=== PATIENT | male | born 1985 | race Caucasian/White ===

== ENCOUNTER 2023-08-20 09:34 | Observation (INO) | payer SELFPAY ==
[2023-08-20 10:13] LABS: PT Prothrombin Time 12.3 SECONDS (9.4-12.5); Protime INR 1.12
--- NOTE | 2023-08-20 10:20 | RAD REPORT ---
EXAM DESCRIPTION: RAD - Chest Single View - 08/20/2023 10:10 am CLINICAL HISTORY: l sided numbness Chest pain. COMPARISON: No comparisons FINDINGS: Portable technique limits examination quality. The lungs are grossly clear. The heart is normal in size. No displaced fractures. IMPRESSION: No acute intrathoracic process suspected.
[2023-08-20] MEDS ORDERED: NA CHLORIDE 0.9% 1,000 ML ONE (10:21)
--- NOTE | 2023-08-20 10:22 | RAD REPORT ---
EXAM DESCRIPTION: CT - Ct Stroke Brain Wo Cont - 08/20/2023 10:15 am CLINICAL HISTORY: STROKE ALERT Headache, drowsiness COMPARISON: Head angio dated 08/20/2023 TECHNIQUE: All CT scans are performed using dose optimization technique as appropriate and may inclu de automated exposure control or mA/KV adjustment according to patient size. FINDINGS: No intracranial hemorrhage, hydrocephalus or extra-axial fluid collection.No areas of brai n edema or evidence of midline shift. The paranasal sinuses and mastoids are clear. The calvarium is intact. IMPRESSION: No acute intracranial abnormality.
--- NOTE | 2023-08-20 10:28 | RAD REPORT ---
EXAM DESCRIPTION: CT - Head angio - 08/20/2023 10:15 am CLINICAL HISTORY: LT ARM NUMB Headache, drowsiness COMPARISON: No comparisons TECHNIQUE: CT angiography of the head was performed with MIPs. All CT scans are performed using dose optimization technique as appropriate and may include automated exposure control or mA/KV adjustment according to patient size. FINDINGS: No evidence of large vessel occlusion. No evidence of aneurysm is detected. No flow-limiti ng stenosis or vascular malformation identified. Antegrade flow is seen in the vertebral arteries. The vertebral arteries are codominant. The visualized dural venous sinuses are patent. IMPRESSION: No significant flow abnormality is detected.
--- NOTE | 2023-08-20 10:29 | RAD REPORT ---
EXAM DESCRIPTION: CT - Neck Angio - 08/20/2023 10:15 am CLINICAL HISTORY: l sided numbness Headache, drowsiness COMPARISON: No comparisons TECHNIQUE: CT angiography of the neck vessels was performed with MIPs. All CT scans are performed using dose optimization technique as appropriate and may include automated exposure control or mA/KV adjustment according to patient size. FINDINGS: A left aortic arch is identified with normal three vessel configuration of the great vesse ls. No significant flow abnormality is seen of the common carotid bilaterally. No significant stenosis is identified involving the cervical segments of both internal carotid arteri es. Normal flow is seen within both vertebral arteries. IMPRESSION: No significant flow abnormality of the neck vessels is identified. NASCET criteria used. Mild 0-49% stenosis Moderate 50-69% stenosis Severe 70-99% stenosis
[2023-08-20 10:54] LABS: Absolute Basophils 0.1 K/uL (0-0.5); Absolute Eosinophils 0.1 K/uL (0-0.5); Absolute Lymphocytes (CBC) 1.8 K/uL (0.7-4.9); Absolute Monocytes 0.5 K/uL (0.1-1.3); Absolute Neutrophil 6.9 K/uL (1.8-8.0); Basophils % 0.9 % (0-1.3); Eosinophils % 0.7 % (0-4.4); Hematocrit 42.3 % (39.6-49.0); Hemoglobin 14.2 g/dL (13.6-17.9); Lymphocytes % 19.4 % (15.3-44.8); MCH 31.8 pg (27.0-35.0); MCHC 33.6 g/dL (32.0-36.0); MCV 94.5 fL (80-100); MPV 7.7 fL (7.6-11.3); Platelets 290 thou/uL (152-406); RBC Red Blood Cell Count 4.48 M/uL (4.33-5.43); Red Cell Distribution Width 14.3 % (12.1-15.2)
[2023-08-20 11:01] LABS: PTT, Activated Partial Thromb 36.6 SECONDS (24.3-36.9)
[2023-08-20 13:30] LABS: ALT/SGPT 28 U/L (16-61); AST/SGOT 13 U/L (15-37); Albumin 4.1 g/dL (3.4-5.0); Albumin/Globulin Ratio 1.3 (1.1-1.8); Alkaline Phosphatase 65 U/L (45-117); Anion Gap 6.8 mEq/L (5.0-15.0); BUN Blood Urea Nitrogen 7 mg/dL (7-18); Bicarbonate 29 mEq/L (21-32); Bilirubin Total 0.4 mg/dL (0.2-1.0); Globulin 3.2 g/dL (2.3-3.5); Glomerular Filtration Rate 115 ml/min (=/>90); Glucose Level 88 mg/dL (74-106); Magnesium 2.3 mg/dL (1.6-2.4); Potassium 3.8 mEq/L (3.5-5.1); Protein, Total 7.3 g/dL (6.4-8.2); Sodium Level 141 mEq/L (136-145)
[2023-08-20 13:33] LABS: Bilirubin Direct < 0.2 mg/dL (0-0.2); Bilirubin Indirect, Calculated 0.2 mg/dL (0.2-0.8); Troponin High Sensitivity < 3.0 pg/mL (<58.9)
--- NOTE | 2023-08-20 14:04 | ER ---
Nurse's Notes [facility] Name: Adam Boyer Age: 38 yrs Sex: Male : 1985 Arrival Date: 08/20/2023 Time: 09:34 Bed 14 Private MD: Diagnosis: Left-sided numbness;Double vision Presentation: 08/19 09:40 Chief complaint: Patient states: Left arm numbness and dizziness since last night. Pt aa5 reports feeling shaky and blurry vision today. 09:40 Acuity: RAFFY 2 aa5 09:40 Method Of Arrival: Ambulatory aa5 09:40 Coronavirus screen: At this time, the client does not indicate any symptoms associated aa5 with coronavirus-19. Ebola Screen: Patient denies travel to an Ebola-affected area in the 21 days before illness onset. Initial Sepsis Screen: Does the patient meet any 2 criteria? No. Patient's initial sepsis screen is negative. Does the patient have a suspected source of infection? No. Patient's initial sepsis screen is negative. Risk Assessment: Do you want to hurt yourself or someone else? Patient reports no desire to harm self or others. Onset of symptoms was August 19, 2023. Historical: - Allergies: 10:04 No Known Allergies; mb9 - Home Meds: 09:50 gabapentin [Active]; antidepressant [Active]; aa5 - PMHx: 09:50 Anxiety; Depressive disorder; aa5 - PSHx: 10:04 None; mb9 - Immunization history:: Adult Immunizations unknown. - Infectious Disease History:: Denies. - Social history:: Smoking status: Patient reports the use of cigarette tobacco products, smokes one pack cigarettes per day. - Family history:: not pertinent. Screenin:41 [facility] ED Fall Risk Assessment (Adult) History of falling in the last 3 months, mb9 including since admission No falls in past 3 months (0 pts) Confusion or Disorientation No (0 pts) Intoxicated or Sedated No (0 pts) Impaired Gait No (0 pts) Mobility Assist Device Used No (0 pt) Altered Elimination No (0 pt) Score/Fall Risk Level 0 - 2 = Low Risk Oriented to surroundings, Maintained a safe environment, Educated pt \T\ family on fall prevention, incl call for assistance when getting out of bed. Abuse screen: Denies threats or abuse. Nutritional screening: No deficits noted. Tuberculosis screening: No symptoms or risk factors identified. Assessment: 10:02 General: Appears in no apparent distress. Behavior is anxious. Pain: Denies pain. mb9 Neuro: Vasquez Agitation-Sedation Scale (RASS): 0 - Alert and Calm Level of Consciousness is awake, alert, obeys commands, Oriented to person, place, time, situation, Appropriate for age Manager Mobile are equal bilaterally Moves all extremities. Gait is steady, Speech is normal, Facial symmetry appears normal, Pupils are PERRLA, Numbness in left arm and left leg. Cardiovascular: Heart tones S1 S2 present Patient's skin is warm and dry. Respiratory: Airway is patent Respiratory effort is even, unlabored, Respiratory pattern is regular, symmetrical. GI: Abdomen is round non-distended, Bowel sounds present X 4 quads. Abd is soft and non tender X 4 quads. : No signs and/or symptoms were reported regarding the genitourinary system. EENT: No signs and/or symptoms were reported regarding the EENT system. Derm: Skin is pink, warm \T\ dry. Musculoskeletal: Range of motion: intact in all extremities. 10:25 Reassessment: Lab at bedside drawing blood. mb9 11:53 Reassessment: No changes from previously documented assessment. Patient and/or family mb9 updated on plan of care and expected duration. Pain level reassessed. Patient is alert, oriented x 3, equal unlabored respirations, skin warm/dry/pink. 14:00 Reassessment: No changes from previously documented assessment. Patient and/or family mb9 updated on plan of care and expected duration. Pain level reassessed. Patient is alert, oriented x 3, equal unlabored respirations, skin warm/dry/pink. 16:00 Reassessment: Patient appears in no apparent distress at this time. No changes from mb9 previously documented assessment. Patient and/or family updated on plan of care and expected duration. Pain level reassessed. Patient is alert, oriented x 3, equal unlabored respirations, skin warm/dry/pink. 17:48 Reassessment: No changes from previously documented assessment. Patient and/or family mb9 updated on plan of care and expected duration. Pain level reassessed. Patient is alert, oriented x 3, equal unlabored respirations, skin warm/dry/pink. Vital Signs: 09:40 BP 152 / 96; Pulse 75; Resp 18 S; Temp 99(O); Pulse Ox 96% on R/A; Weight 83.91 kg (R); aa5 Height 5 ft. 8 in. (R); 12:17 BP 123 / 80; Pulse 65; Resp 18; Pulse Ox 99% on R/A; mb9 14:00 BP 119 / 71; Pulse 62; Resp 18; Pulse Ox 100% on R/A; mb9 16:04 BP 112 / 67; Pulse 60; Resp 16; Pulse Ox 100% on R/A; mb9 17:04 Temp 98.5(O); mb9 09:40 Body Mass Index 28.13 (83.91 kg, 172.72 cm) aa5 NIH Stroke Scale Scores: 09:50 NIHSS Score: 2 mb9 ED Course: 09:37 Patient arrived in ED. mg5 09:40 Tanisha Hopkins, RN is Primary Nurse. mb9 09:40 Arm band placed on. mb9 09:40 Placed in gown. Bed in low position. Call light in reach. Side rails up X 1. Provided mb9 Education on: press call light if needing anything. Client placed on continuous cardiac and pulse oximetry monitoring. NIBP monitoring applied. mechanical energy engineer on. Door closed. Noise minimized. Warm blanket given. Pillow given. 09:41 Nomi Mohan MD is Attending Physician. rt 09:49 Triage completed. aa5 09:55 Missed attempt(s): 20 gauge in left antecubital area. Bleeding controlled, band aid mb9 applied, catheter tip intact. 09:55 EKG done, by ED staff, reviewed by Nomi Mhoan MD. mb9 10:02 Initial lab(s) drawn, by nd, sent to lab. Inserted saline lock: 22 gauge in right mb9 forearm, using aseptic technique. Blood collected. 10:12 Stroke CXR 1 View In Process Unspecified. EDMS 10:17 CT Neck Angio In Process Unspecified. EDMS 10:17 CT Stroke Brain w/o Contrast In Process Unspecified. EDMS 10:17 Head angio In Process Unspecified. EDMS 14:01 Jason Lim is Hospitalizing Provider. rt 16:04 No provider procedures requiring assistance completed. Patient admitted, IV remains in mb9 place. 16:18 Brain Wo Cont In Process Unspecified. EDMS Administered Medications: 10:40 Drug: NS 0.9% IV 1000 ml IV at 1000 ml once Route: IV; Rate: 1000 ml; Site: right mb9 forearm; 12:55 Follow up: Response: No adverse reaction; IV Status: Completed infusion [email or web address] 14:13 Drug: Ativan IVP 1 mg IVP once Route: IVP; Site: right forearm; 9 Medication: 09:41 VIS not applicable for this client. stacie Outcome: 14:02 Decision to Hospitalize by Provider. rt 17:48 Admitted to Med/surg accompanied by nurse, stacie 17:48 Condition: stable 17:48 Instructed on the need for admit, 17:49 Patient left the ED. stacie NIH Stroke Scale - NIH Stroke Score Date: 08/20/2023 Time: 09:50 Total Score = 2 10. Dysarthria (speech clarity - read or repeat words) - 0(Normal) 11. Extinction and Inattention (visual/tactile/auditory/spatial/personal) - 0(No abnormality) 1a. Level of Consciousness (LOC) - 0(Alert) 1b. Level of Consciousness (LOC) (Month \T\ Age) - 0(Both) 1c. LOC Commands (Open \T\ Closes Eyes/Tow Boat Captain) - 0(Both) 2. Best Gaze (Lateral Gaze Paresis) - 0(Normal) 3. Visual Field Loss - 0(No visual loss) 4. Facial Palsy - 0(Normal) 5a. Left Arm: Motor (10-second hold) - 0(No drift) 5b. Right Arm: Motor (10-second hold) - 0(No drift) 6a. Left Leg: Motor (5-second hold - always test supine) - 0(No drift) 6b. Right Leg: Motor (5-second hold - always test supine) - 0(No drift) 7. Limb Ataxia (finger/nose \T\ heel/wallace - test with eyes open) - 0(Absent) 8. Sensory Loss (pinprick arms/legs/face) - 1(Mild to moderate loss) 9. Best Language: Aphasia (description/naming/reading) - 1(Mild to moderate aphasia) Initials: mb9 Signatures: Dispatcher [employer] EDMS Sarah Titus RN RN aa5 Tanisha Hopkins RN RN mb9 Nomi Mohan MD MD rt Cierra Villegas mg5
--- NOTE | 2023-08-20 14:04 | EDPHYS ---
Physician Documentation [facility] Name: Adam Boyer Age: 38 yrs Sex: Male : 1985 Arrival Date: 08/20/2023 Time: 09:34 Bed 14 Private MD: ED Physician Nomi Mohan HPI: 08/19 10:29 This 38 yrs old Male presents to ER via Ambulatory with complaints of Numbness Of Arm, rt Blurred Vision. 10:29 Patient presents to the ED with blurred vision, double vision starting last night. rt Patient also reports a numbness in his left arm. Denies any significant neck pain. Denies other weakness. Denies headache. Denies other acute complaints, symptoms are moderate in severity, no other aggravating or alleviating factors.. Historical: - Allergies: 10:04 No Known Allergies; mb9 - Home Meds: 09:50 gabapentin [Active]; antidepressant [Active]; aa5 - PMHx: 09:50 Anxiety; Depressive disorder; aa5 - PSHx: 10:04 None; mb9 - Immunization history:: Adult Immunizations unknown. - Infectious Disease History:: Denies. - Social history:: Smoking status: Patient reports the use of cigarette tobacco products, smokes one pack cigarettes per day. - Family history:: not pertinent. ROS: 10:29 Constitutional: Negative for fever, chills, and weight loss, Cardiovascular: Negative rt for chest pain, palpitations, and edema, Respiratory: Negative for shortness of breath, cough, wheezing, and pleuritic chest pain, Abdomen/GI: Negative for abdominal pain, nausea, vomiting, diarrhea, and constipation, 10:29 Eyes: Positive for blurry vision, Negative for pain, 10:29 Neuro: Positive for numbness, Negative for weakness, Exam: 10:29 Constitutional: This is a well developed, well nourished patient who is awake, alert, rt and in no acute distress. Chest/axilla: Normal chest wall appearance and motion. Nontender with no deformity. No lesions are appreciated. Cardiovascular: Regular rate and rhythm with a normal S1 and S2. No gallops, murmurs, or rubs. Normal PMI, no JVD. No pulse deficits. Respiratory: Lungs have equal breath sounds bilaterally, clear to auscultation and percussion. No rales, rhonchi or wheezes noted. No increased work of breathing, no retractions or nasal flaring. Abdomen/GI: Soft, non-tender, with normal bowel sounds. No distension or tympany. No guarding or rebound. No evidence of tenderness throughout. Skin: Warm, dry with normal turgor. Normal color with no rashes, no lesions, and no evidence of cellulitis. MS/ Extremity: Pulses equal, no cyanosis. Neurovascular intact. Full, normal range of motion. 10:29 Eyes: Extraocular muscles are intact, no visual field deficits. 10:29 ECG was reviewed by the Attending Physician. 10:29 Neuro: Sensory deficits on left arm, left leg, sensation otherwise intact, strength 5/5 in all 4 extremities. No cranial nerve deficits, speech normal, no ataxia on [id number], Vital Signs: 09:40 BP 152 / 96; Pulse 75; Resp 18 S; Temp 99(O); Pulse Ox 96% on R/A; Weight 83.91 kg (R); aa5 Height 5 ft. 8 in. (R); 12:17 BP 123 / 80; Pulse 65; Resp 18; Pulse Ox 99% on R/A; mb9 14:00 BP 119 / 71; Pulse 62; Resp 18; Pulse Ox 100% on R/A; mb9 16:04 BP 112 / 67; Pulse 60; Resp 16; Pulse Ox 100% on R/A; mb9 17:04 Temp 98.5(O); mb9 09:40 Body Mass Index 28.13 (83.91 kg, 172.72 cm) aa5 NIH Stroke Scale Scores: 09:50 NIHSS Score: 2 mb9 MDM: 09:43 Patient medically screened. rt 15:05 Differential diagnosis: CVA, complex migraine, dehydration. Data reviewed: vital signs, rt nurses notes, lab test result(s), EKG, radiologic studies. Consideration of Admission/Observation Patient was admitted/placed on observation. Management of patient was discussed with the following: Hospitalist: Agrees to admit. Independent interpretation of the following test(s) in the Emergency Department CT Scan: My interpretation is No intracranial hemorrhage seen on interpretation of CT scan images. Counseling: I had a detailed discussion with the patient and/or guardian regarding the historical points, exam findings, and any diagnostic results supporting the discharge/admit diagnosis, lab results, radiology results, the need for further work-up and treatment in the hospital. Response to treatment: There is no appreciated change of the patient's symptoms at this time. ED course: Patient is outside of the window for thrombolytics, no large vessel occlusion identified on CT angiogram, patient does not require transfer. 08/19 09:50 Order name: Basic Metabolic Panel; Complete Time: 13:34 rt 08/19 09:50 Order name: CBC with Diff; Complete Time: 12:08 rt 08/19 09:50 Order name: Hepatic Function; Complete Time: 13:34 rt 08/19 09:50 Order name: High Sensitivity Troponin; Complete Time: 13:34 rt 08/19 09:50 Order name: Magnesium; Complete Time: 13:34 rt 08/19 09:50 Order name: Protime (+inr); Complete Time: 12:08 rt 08/19 09:50 Order name: Ptt, Activated; Complete Time: 12:08 rt 08/19 09:50 Order name: TSH; Complete Time: 13:34 rt 08/19 15:28 Order name: Urine Drug Screen EDMS 08/19 15:28 Order name: Basic Metabolic Panel EDMS 08/19 15:28 Order name: Basic Metabolic Panel EDMS 08/19 15:28 Order name: Basic Metabolic Panel EDMS 08/19 15:28 Order name: Basic Metabolic Panel EDMS 08/19 15:28 Order name: Basic Metabolic Panel EDMS 08/19 15:28 Order name: Basic Metabolic Panel EDMS 08/19 15:28 Order name: CBC with Automated Diff EDMS 08/19 15:28 Order name: CBC with Automated Diff EDMS 08/19 15:28 Order name: CBC with Automated Diff EDMS 08/19 15:28 Order name: CBC with Automated Diff EDMS 08/19 15:28 Order name: CBC with Automated Diff EDMS 08/19 15:28 Order name: CBC with Automated Diff EDMS 08/19 15:28 Order name: Lipid Profile EDMS 08/19 15:28 Order name: Lipid Profile EDMS 08/19 15:28 Order name: Magnesium EDMS 08/19 15:28 Order name: Magnesium EDMS 08/19 15:28 Order name: Magnesium EDMS 08/19 15:28 Order name: Magnesium EDMS 08/19 15:28 Order name: Magnesium EDMS 08/19 15:28 Order name: Magnesium EDMS 08/19 15:28 Order name: Phosphorus EDMS 08/19 15:28 Order name: Phosphorus EDMS 08/19 15:28 Order name: Phosphorus EDMS 08/19 15:28 Order name: Phosphorus EDMS 08/19 15:28 Order name: Phosphorus EDMS 08/19 15:28 Order name: Phosphorus EDMS 08/19 15:28 Order name: T4,Total EDMS 08/19 15:28 Order name: T4,Total EDMS 08/19 15:28 Order name: Thyroid Stimulating Hormone EDMS 08/19 15:28 Order name: Thyroid Stimulating Hormone EDMS 08/19 15:28 Order name: Troponin High Sensitivity EDMS 08/19 15:28 Order name: Troponin High Sensitivity EDMS 08/19 15:28 Order name: Troponin High Sensitivity EDMS 08/19 09:50 Order name: CT Neck Angio; Complete Time: 10:31 rt 08/19 09:50 Order name: CT Stroke Brain w/o Contrast; Complete Time: 10:31 rt 08/19 09:50 Order name: Stroke CXR 1 View; Complete Time: 10:31 rt 08/19 10:11 Order name: Head angio; Complete Time: 10:31 EDMS 08/19 15:28 Order name: Echo with Doppler EDMS 08/19 16:00 Order name: Brain Wo Cont EDMS 08/19 15:28 Order name: IRF Screen EDMS 08/19 15:28 Order name: Physical Therapy Consult EDMS 08/19 15:28 Order name: EKG Electrocardiogram EDMS 08/19 09:50 Order name: Accucheck; Complete Time: 10:04 rt 08/19 09:50 Order name: Cardiac monitoring; Complete Time: 10:02 rt 08/19 09:50 Order name: EKG - Nurse/Tech; Complete Time: 10:02 rt 08/19 09:50 Order name: IV Saline Lock; Complete Time: 10:02 rt 08/19 09:50 Order name: Labs collected and sent; Complete Time: 10:02 rt 08/19 09:50 Order name: NPO; Complete Time: 10:02 rt 08/19 09:50 Order name: O2 Per Protocol; Complete Time: 10:02 rt 08/19 09:50 Order name: O2 Sat Monitoring; Complete Time: 10:02 rt 08/19 09:50 Order name: Stroke Swallow Screen; Complete Time: 10:04 rt EC:29 Rate is 80 beats/min. Rhythm is regular, Normal Sinus Rhythm with No ectopy. QRS [place] rt is Normal. [place] interval is normal. QRS interval is normal. QT interval is normal. No Q waves. T waves are Normal. No ST changes noted. Interpreted by me. Administered Medications: 10:40 Drug: NS 0.9% IV 1000 ml IV at 1000 ml once Route: IV; Rate: 1000 ml; Site: right mb9 forearm; 12:55 Follow up: Response: No adverse reaction; IV Status: Completed infusion mb9 14:13 Drug: Ativan IVP 1 mg IVP once Route: IVP; Site: right forearm; mb9 Disposition Summary: 08/20/23 14:02 Hospitalization Ordered Notes: Hospitalization Status: Observation rt Provider: Jason Lim rt Location: Telemetry/MedSurg (observation) rt Condition: Stable rt Problem: new rt Symptoms: are unchanged rt Bed/Room Type: Standard rt Room Assignment: 215(08/20/23 16:50) kb3 Diagnosis - Left-sided numbness rt - Double vision rt Forms: - Medication Reconciliation Form rt - SBAR form rt - Leadership Thank You Letter rt NIH Stroke Scale - NIH Stroke Score Date: 08/20/2023 Time: 09:50 Total Score = 2 10. Dysarthria (speech clarity - read or repeat words) - 0(Normal) 11. Extinction and Inattention (visual/tactile/auditory/spatial/personal) - 0(No abnormality) 1a. Level of Consciousness (LOC) - 0(Alert) 1b. Level of Consciousness (LOC) (Month \T\ Age) - 0(Both) 1c. LOC Commands (Open \T\ Closes Eyes/Health Inspector Food) - 0(Both) 2. Best Gaze (Lateral Gaze Paresis) - 0(Normal) 3. Visual Field Loss - 0(No visual loss) 4. Facial Palsy - 0(Normal) 5a. Left Arm: Motor (10-second hold) - 0(No drift) 5b. Right Arm: Motor (10-second hold) - 0(No drift) 6a. Left Leg: Motor (5-second hold - always test supine) - 0(No drift) 6b. Right Leg: Motor (5-second hold - always test supine) - 0(No drift) 7. Limb Ataxia (finger/nose \T\ heel/wallace - test with eyes open) - 0(Absent) 8. Sensory Loss (pinprick arms/legs/face) - 1(Mild to moderate loss) 9. Best Language: Aphasia (description/naming/reading) - 1(Mild to moderate aphasia) Initials: mb9 Signatures: Dispatcher [employer] EDMS Sarah Titus, RN RN aa5 Alicja Mantilla, RN RN kb3 Tanisha Hopkins RN RN mb9 Nomi Mohan MD MD rt Corrections: (The following items were deleted from the chart) 09:51 09:51 BASIC METABOLIC PANEL+C.LAB.BRZ ordered. EDMS EDMS 09:51 09:51 CBC+H.LAB.BRZ ordered. EDMS EDMS 09:51 09:51 HEPATIC FUNCTION+C.LAB.BRZ ordered. EDMS EDMS 09:51 09:51 Troponin High Sensitivity+C.LAB.BRZ ordered. EDMS EDMS 09:51 09:51 MAGNESIUM+C.LAB.BRZ ordered. EDMS EDMS 09:51 09:51 PROTIME (+INR)+COAG.LAB.BRZ ordered. EDMS EDMS 09:51 09:51 PTT, ACTIVATED+COAG.LAB.BRZ ordered. EDMS EDMS 09:51 09:51 THYROID STIMULAT HORMONE+C.LAB.BRZ ordered. EDMS EDMS 09:51 09:51 CT-STROKE BRAIN W/O CONTRAST+CT.RAD.BRZ ordered. EDMS EDMS 09:51 09:51 Chest Single View+RAD.RAD.BRZ ordered. EDMS EDMS 16:00 15:28 Stroke Protocol ordered. EDMS EDMS 16:50 14:02 rt kb3
[2023-08-20] MEDS ORDERED: LORazepam 2 MG/ML VIAL ONE (14:09)
--- NOTE | 2023-08-20 14:19 | P.HP ---
Certification for Inpatient Patient admitted to: Observation With expected LOS: <2 Midnights Patient will require the following post-hospital care: None Practitioner: I am a practitioner with admitting privileges, knowledge of patient current condition, hospital course, and medical plan of care. Services: Services provided to patient in accordance with Admission requirements found in Title 42 Section 412.3 of the Code of Federal Regulations Patient History Date of Service: 08/20/23 Reason for admission: Blurred vision and left-sided numbness History of Present Illness: Adam Boyer is a 38 year old male with Pmhx anxiety/depression who presents to the ED with chief complaint of blurred vision, double vision that started last night and left arm numbness. He reports symptoms began 8:30 PM last night and this morning as left arm numbness had decreased. He has always been able to use his left arm and control gripping objects. Blurred vision is intermittent but especially prominent when he squints his eyes. Reports he has anxiety which may be causing the symptoms. Initial vitals BP 152 / 96; Pulse 75; Resp 18 S; Temp 99(O); Pulse Ox 96% on R/A Laboratory evaluation unremarkable Chest x-ray reports "The lungs are grossly clear. The heart is normal in size. No displaced fractures. IMPRESSION: No acute intrathoracic process suspected." CT neck reports "No significant flow abnormality of the neck vessels is identified." CT brain without contrast reports "No intracranial hemorrhage, hydrocephalus or extra-axial fluid collection.No areas of brain edema or evidence of midline shift. The paranasal sinuses and mastoids are clear. The calvarium is intact. IMPRESSION: No acute intracranial abnormality.' CTA head reports "No significant flow abnormality is detected." Adam will be admitted to hospitalist service for further evaluation and treatment, Dr. Peterson consulted. Allergies No Known Allergies Allergy (Unverified 08/20/23 17:18) - Past Medical/Surgical History -: Anxiety/depression Past Surgical History: Reviewed- Non-Contributory - Social History Smoking Status: Current every day smoker (1 pack daily) Alcohol use: No CD- Drugs: No Review of Systems Eyes: Vision Change (blurry/double vision) Neurological: Numbness (left arm), Other (bilateral upper extremity tremors) Physical Examination - Studies Laboratory Data (last 24 hrs) 08/20/23 08/20/23 08/20/23 12:58 10:39 10:39 WBC 9.30 Hgb 14.2 Hct 42.3 Plt Count 290 PT 12.3 INR 1.12 APTT 36.6 Sodium 141 Potassium 3.8 BUN 7 Creatinine 0.83 Glucose 88 Magnesium 2.3 Total Bilirubin 0.4 AST 13 L ALT 28 Alkaline Phosphatase 65 Assessment and Plan - Plan Assessment and plan Acute CVA versus TIA Blurred/double vision Left arm numbness Bilateral upper extremity tremors -MRI Grossly normal unenhanced brain MRI - NIHSS 2 in the ER - Consulted Neurology - recommendations appreciated - Admit under observation status - No neurologic deficits on my exam - NIHSS = 0 - Allow permissive hypertension for tonight - q4hr neurochecks - Ordered TTE - PT/OT evaluation requested - Ordered risk profile: Hgb A1c, lipid panel, TSH - Started aspirin daily -gentle IVF -toxicology pending Hypertensive -hydralazine PRN History anxiety/depression -reports under stress right now -Continue home medication DVT PPx SCDs Full code LOS 2 days Discharge Plan: Home Plan to discharge in: 24 Hours - Advance Directives Does patient have a Living Will: No Does patient have a Durable POA for Healthcare: No
[2023-08-20] MEDS ORDERED: ACETAMINOPHEN 500 MG TAB PO PRN (15:14)
--- NOTE | 2023-08-20 16:27 | RAD REPORT ---
EXAM DESCRIPTION: MRI - Brain Wo Cont - 08/20/2023 4:17 pm CLINICAL HISTORY: Left arm numbness COMPARISON: Head CT July TECHNIQUE: Axial, sagittal, and coronal magnetic resonance images of the brain were obtained. FINDINGS: Artifact from the BB within the frontal scalp results in severe artifact within portions of frontal lobes primarily No significant abnormal signal within the brain visualized Diffusion-weighted/ADC mapping images are nondiagnostic secondary to artifact. The ventricles are normal caliber. An extra-axial fluid collection is not noted. Fluid within the sinuses/mastoids is not seen IMPRESSION: Grossly normal unenhanced brain MRI
[2023-08-20 18:10] VITALS: O2SAT 99
[2023-08-20] MEDS ORDERED: HYDRALAZINE HCL 20 MG/ML VIAL IV PRN (18:26)
[2023-08-20] MEDS: NA CHLORIDE 0.9% 1,000 ML IV SCH (18:29)
[2023-08-20] MEDS: LORAZEPAM 0.5 MG TABLET PO PRN (20:31)
[2023-08-20 20:34] VITALS: BMI 28.1
[2023-08-20 21:18] LABS: Barbiturates NEGATIVE (NEGATIVE); Benzodiazepines POSITIVE (NEGATIVE); Cocaine NEGATIVE (NEGATIVE); METHAMPHETAM NEGATIVE (NEGATIVE); Methadone NEGATIVE (NEGATIVE); Opiates NEGATIVE (NEGATIVE); Phencyclidine NEGATIVE (NEGATIVE); THC Cannibis NEGATIVE (NEGATIVE)
[2023-08-21 04:38] LABS: Absolute Basophils 0.1 K/uL (0-0.5); Absolute Eosinophils 0.2 K/uL (0-0.5); Absolute Lymphocytes (CBC) 3.9 K/uL (0.7-4.9); Absolute Monocytes 0.7 K/uL (0.1-1.3); Absolute Neutrophil 5.5 K/uL (1.8-8.0); Basophils % 0.7 % (0-1.3); Eosinophils % 1.8 % (0-4.4); Hematocrit 40.1 % (39.6-49.0); Hemoglobin 13.7 g/dL (13.6-17.9); Lymphocytes % 37.6 % (15.3-44.8); MCH 32.1 pg (27.0-35.0); MCHC 34.1 g/dL (32.0-36.0); MCV 94.2 fL (80-100); MPV 8.1 fL (7.6-11.3); Monocytes % 6.8 % (3.3-12.3); Neutrophils % 53.1 % (41.7-73.7); Nucleated Red Blood Cells % 0.1 % (0-0); Platelets 262 thou/uL (152-406); RBC Red Blood Cell Count 4.25 M/uL (4.33-5.43); Red Cell Distribution Width 14.1 % (12.1-15.2)
[2023-08-21 04:52] LABS: Anion Gap 6.8 mEq/L (5.0-15.0); Magnesium 2.2 mg/dL (1.6-2.4); Potassium 3.8 mEq/L (3.5-5.1); T4,Total 4.7 ug/dL (4.5-12.1); Thyroid Stimulating Hormone 3.38 uIU/mL (0.358-3.740)
[2023-08-21 08:32] VITALS: BP 100/55; TEMP 97.5
--- NOTE | 2023-08-21 08:58 | P.DS ---
Admission Date: 08/20/23 Discharge Date: 08/21/23 Disposition: ROUTINE DISCHARGE Discharge Condition: GOOD Reason for Admission: Blurred vision and left-sided numbness Brief History of Present Illness: Adam Boyer is a 38 year old male with Pmhx anxiety/depression who presents to the ED with chief complaint of blurred vision, double vision that started last night and left arm numbness. He reports symptoms began 8:30 PM last night and this morning as left arm numbness had decreased. He has always been able to use his left arm and control gripping objects. Blurred vision is intermittent but especially prominent when he squints his eyes. Reports he has anxiety which may be causing the symptoms. Hospital Course: problem list Acute CVA versus TIA Blurred/double vision Left arm numbness Bilateral upper extremity tremors Hypertensive History anxiety/depression Patient was admitted to the hospital under observation for left upper extremity paresthesia, sensation left foot, blurry vision/diplopia. CT head without contrast was negative for acute findings, CTA of the head and neck were also performed which were negative for large vessel occlusion or other acute findings. Subsequent MRI of the brain also negative for acute findings. Patient symptoms improved mildly throughout the evening, his vision has returned to normal although he is still experiencing some left upper extremity paresthesias although function is intact. He also has tremors to bilateral upper extremities at rest. Discussed case with neurology who recommends treatment for possible TIA with aspirin, Plavix, statin therapy. Labs within normal limits, lipid panel within normal limits aside from HDL of 30, slightly low. Medications include Aspirin 81 mg mouth once zlyeb-[id number]-[id number]-counter, please obtain and take daily for at least 3 months Clopidogrel 75 mg by mouth once daily-prescription given for 90 days Atorvastatin 40 mg by mouth at bedtime-prescription given for 90 days Please follow-up with your primary care doctor as well as a neurologist. Vital Signs/Physical Exam: Temp Pulse Resp BP Pulse Ox 97.5 F 55 16 100/55 L 96 08/21/23 08:00 08/21/23 08:00 08/21/23 08:00 08/21/23 08:00 08/21/23 08:00 General: Alert, In no apparent distress, Oriented x3 HEENT: Atraumatic, PERRLA Neck: Supple, JVD not distended Respiratory: Clear to auscultation bilaterally, Normal air movement Cardiovascular: Regular rate/rhythm, Normal S1 S2 Gastrointestinal: Normal bowel sounds, No tenderness Musculoskeletal: No tenderness Integumentary: No rashes Neurological: Normal speech, Normal tone, Abnormal sensation (Decreased senstion LUE, resting tremor present dee upper extremities) Laboratory Data at Discharge: WBC 10.30 thou/uL (4.3-10.9) 08/21/23 03:37 Hgb 13.7 g/dL (13.6-17.9) 08/21/23 03:37 Hct 40.1 % (39.6-49.0) 08/21/23 03:37 Plt Count 262 thou/uL (152-406) 08/21/23 03:37 PT 12.3 SECONDS (9.4-12.5) 08/20/23 10:39 INR 1.12 08/20/23 10:39 APTT 36.6 SECONDS (24.3-36.9) 08/20/23 10:39 Sodium 140 mEq/L (136-145) 08/21/23 03:37 Potassium 3.8 mEq/L (3.5-5.1) 08/21/23 03:37 BUN 11 mg/dL (7-18) 08/21/23 03:37 Creatinine 0.72 mg/dL (0.70-1.30) 08/21/23 03:37 Glucose 92 mg/dL (74-106) 08/21/23 03:37 Phosphorus 4.0 mg/dL (2.5-4.9) 08/21/23 03:37 Magnesium 2.2 mg/dL (1.6-2.4) 08/21/23 03:37 Total Bilirubin 0.4 mg/dL (0.2-1.0) 08/20/23 12:58 AST 13 U/L (15-37) L 08/20/23 12:58 ALT 28 U/L (16-61) 08/20/23 12:58 Alkaline Phosphatase 65 U/L (45-117) 08/20/23 12:58 Triglycerides 129 mg/dL (<150) 08/21/23 03:37 Cholesterol 89 mg/dL (<200) 08/21/23 03:37 HDL Cholesterol 30 mg/dL (40-60) L 08/21/23 03:37 Cholesterol/HDL Ratio 2.97 08/21/23 03:37 Home Medications: Gabapentin 300 mg PO TID 08/20/23 Mirtazapine [Remeron*] 30 mg PO BEDTIME 08/20/23 Mv/Fe/FA/Om3/FSH/Lycop/Lut/Leanne [Multia Daily Multivitamin] 1 tab PO DAILY 08/20/23 Atorvastatin Calcium 40 mg PO BEDTIME #30 tab 08/21/23 Clopidogrel Bisulfate [Plavix*] 75 mg PO DAILY #30 tab 08/21/23 New Medications: Atorvastatin Calcium 40 mg PO BEDTIME #30 tab Clopidogrel Bisulfate [Plavix*] 75 mg PO DAILY #30 tab Physician Discharge Instructions: Patient was admitted to the hospital under observation for left upper extremity paresthesia, sensation left foot, blurry vision/diplopia. CT head without contrast was negative for acute findings, CTA of the head and neck were also performed which were negative for large vessel occlusion or other acute findings. Subsequent MRI of the brain also negative for acute findings. Patient symptoms improved mildly throughout the evening, his vision has returned to normal although he is still experiencing some left upper extremity paresthesias although function is intact. He also has tremors to bilateral upper extremities at rest. Discussed case with neurology who recommends treatment for possible TIA with aspirin, Plavix, statin therapy. Labs within normal limits, lipid panel within normal limits aside from HDL of 30, slightly low. Medications include Aspirin 81 mg mouth once emwid-iblc-lno-counter, please obtain and take daily for at least 3 months Clopidogrel 75 mg by mouth once daily-prescription given for 90 days Atorvastatin 40 mg by mouth at bedtime-prescription given for 90 days Please follow-up with your primary care doctor as well as a neurologist. Diet: AHA Activity: Ad darien Followup: Fernando Peterson MD [ASSOCIATE-ACTIVE - CAN ADMIT] - 1-2 Weeks NONE,NONE [Primary Care Provider] - 1-2 Weeks Time spent managing pt's care (in minutes): 35
[2023-08-21] MEDS: FOLIC ACID 1 MG TABLET PO SCH (09:12)
[2023-08-21] MEDS: POTASSIUM 25 MEQ EFFERV TAB PO ONE (09:12)
--- NOTE | 2023-08-22 14:12 | EKG ---
Test Date: 2023-08-20 Test Time: 09:47:53 [employer]: MB MEASUREMENT RESULTS: Intervals: Rate: 80 DE: 130 QRSD: 96 QT: 352 QTc: 405 [place]: P: 73 DE: 130 QRS: 73 T: 70 INTERPRETIVE STATEMENTS: Normal sinus rhythm Normal ECG No previous ECG available for comparison Electronically Signed On 08-22-23 14:07:55 CDT by Christiano Patrick
== END 2023-08-21 10:09 | disposition home or self-care (01) ==
LOC: ER 09:34 → 2ND 15:14
PROVIDERS: ADMIT Internal Medicine; ATTEND Internal Medicine
DX: H53.8 Other visual disturbances (principal); R25.1 Tremor, unspecified; R20.0 Anesthesia of skin; F41.9 Anxiety disorder, unspecified; F32.A Depression, unspecified
CPT/HCPCS: 36415; 70450; 70496; 70498; 70551; 71045; 80048; 80061; 80076; 80307; 83735; 84100; 84436; 84443; 84484; 85025; 85610; 85730; 93005; 96361; 96374; 97161; 99285; G0378; J7030; Q9967